=== PATIENT | female | born 1950 | race Caucasian/White ===

== ENCOUNTER → 2018-08-07 16:39 | Outpatient (CLI) | payer MEDICARE ==
[2018-08-07 19:46] LABS: ANION GAP 16.7 mmol/L (8-16); CALCIUM 8.9 mg/dL (8.5-10.1); CARBON DIOXIDE 23.6 mmol/L (21.0-32.0); CREATININE - SERUM 1.1 mg/dL (0.6-1.3); POTASSIUM - SERUM 4.3 mmol/L (3.5-5.1)
== END | disposition home or self-care (01) ==
LOC: D.LABREF 16:39
PROVIDERS: ATTEND Internal Medicine Interventional Cardiology
DX: I10 Essential (primary) hypertension (principal)

== ENCOUNTER → 2018-08-09 09:08 | Outpatient (CLI) | payer MEDICARE ==
--- NOTE | 2018-08-15 11:54 | ST ---
PATIENT:EVA HOOD MEDICAL RECORD: [id number] SEX: F LOCATION:[facility] ORDER #: ADMISSION DATE: 08/09/18 AGE OF PATIENT: 67 REFERRING PHYSICIAN: INTERPRETING PHYSICIAN: MALVIN VALERA MD DATE OF SERVICE: 08/09/2018 PROCEDURE: Nuclear Stress Test. INDICATION: Chest pain, abnormal ECG, family history of coronary artery disease. She was exercised on standard Lexiscan protocol with 31 mCi of sestamibi injected at peak stress, 11 mCi were used previously for rest images. FINDINGS: Gated SPECT reveals preserved ejection fraction at 62% with good wall motion and thickening and brightening throughout all segments. SPECT imaging Cardiolite was used as myocardial fusion agent. There is homogeneous uptake throughout all segments at rest and stress with no evidence of inducible ischemia or previous infarction. OVERALL IMPRESSION: 1. This is a normal nuclear stress test with no evidence of inducible ischemia or previous infarction. 2. Gated SPECT reveals a preserved ejection fraction at 62%. In this patient with ongoing symptomatology, the current scan does not suggest the presence of hemodynamically significant coronary artery disease. Evaluate noncardiac etiology of chest pain. TRANSINT:[id number] Voice Confirmation ID: [id number] DOCUMENT ID: [id number] MALVIN VALERA MD at 1154 CC: [id number] DICTATION DATE: 08/09/18 1250 COMPUTING TUTOR: 08/10/18 0056 DEP CLI 08/09/18 [facility] [address] [place] [address]
== END | disposition home or self-care (01) ==
LOC: D.HCCARDIO 09:08
PROVIDERS: ATTEND Internal Medicine Interventional Cardiology
DX: I20.9 Angina pectoris, unspecified (principal)

== ENCOUNTER → 2019-05-15 11:06 | Outpatient (CLI) | payer MEDICARE | END | disposition home or self-care (01) | LOC: D.LABREF 11:06 | PROVIDERS: ATTEND Orthopaedic Surgery | DX: M16.12 Unilateral primary osteoarthritis, left hip (principal) ==

== ENCOUNTER 2019-05-22 11:23 | Inpatient (IN) | payer MEDICARE ==
[~2019-05-22] VITALS: Ht 162.6 cm; Wt 83.9 kg
[2019-06-06] MEDS ORDERED: OMEPRAZOLE20 M1 PO (14:40)
[2019-06-06] MEDS ORDERED: ULTRAM50 MG PO (14:40)
[2019-06-06] MEDS ORDERED: MAGNESIUM OXID250 MG PO (14:42)
[2019-06-06] MEDS ORDERED: CLARITIN 10 MG10 MG PO (14:43)
[2019-06-06] MEDS ORDERED: MELATONIN10 M1 PO (14:43)
[2019-06-06] MEDS ORDERED: DIOVAN160 MG PO (14:50)
[2019-06-06] MEDS ORDERED: HYDROCHLOROTHIA25 MG PO (14:50)
[2019-06-06] MEDS ORDERED: ADVAIR HFA [SP]12 GM INH (14:51)
[2019-06-09 12:22] LABS: APPEARANCE CLEAR (CLEAR); BILIRUBIN NEGATIVE (NEGATIVE); COLOR YELLOW (YELLOW); GLUCOSE NEGATIVE (NEGATIVE); KETONE NEGATIVE (NEGATIVE); NITRITE NEGATIVE (NEGATIVE); PROTEIN NEGATIVE (NEGATIVE); SPECIFIC GRAVITY 1.015 (1.005-1.020); UROBILINOGEN NORMAL (NORMAL)
[2019-06-09 12:23] LABS: BACTERIA MANY /hpf (NEGATIVE); EPITHELIAL CELLS 0-5 /hpf (0-5); RED CELLS - URINE 0-5 /hpf (0-5); WHITE CELLS - URINE 0-5 /hpf (NEGATIVE)
[2019-06-17 08:24] VITALS: BP 137/97; BMI 34.4
[2019-06-17 08:47] LABS: BASOPHILS 0.6 % (0-2); EOSINOPHILS 3.9 % (0-7); HEMATOCRIT 40.2 % (36.0-48.0); IMMATURE GRANULOCYTES 0.3 % (0-5); LYMPHOCYTES 32.6 % (15-50); MCHC 34.8 g/dL (31.0-37.0); MCV 86.1 fL (80.0-100.0); MEAN PLATELET VOLUME 8.7 fL (7.4-10.4); MONOCYTES 8.3 % (2-11); NEUTROPHILS 54.3 % (40-80); PLATELET COUNT 301 10x3/uL (130-400); RBC 4.67 10x6/uL (4.00-5.40); RDW 12.3 % (11.5-14.5); WBC 7.3 10x3/uL (4.8-10.8)
[2019-06-17 08:51] LABS: ANION GAP 11.8 mmol/L (8-16); CALCIUM 9.1 mg/dL (8.5-10.1); CARBON DIOXIDE 27.3 mmol/L (21.0-32.0); CREATININE - SERUM 0.9 mg/dL (0.6-1.3); POTASSIUM - SERUM 4.1 mmol/L (3.5-5.1)
[2019-06-17 08:53] LABS: APTT 28.8 SECONDS (22.8-39.4); INR 1.05 (0.85-1.17); PROTIME 13.2 SECONDS (11.6-15.0)
[2019-06-17 14:15] VITALS: BP 126/73
[2019-06-17 14:28] VITALS: BP 117/77; BMI 31.8
--- NOTE | 2019-06-17 19:27 | NUR ---
RESTING IN BED WITH EYES CLOSED. RESP EVEN AND UNLABORED WITH NO S/S OF ANY ACUTE DISTRESS NOTED. WILL NOTE ANY CHANGE.
--- NOTE | 2019-06-17 20:15 | NUR ---
AWAKE AT THIS TIME. ALERT AND ORIENTED. PLEASANT MOOD AND AFFECT. ABLE TO VOICE ALL NEEDS. WILL NOTE ANY CHANGE.
--- NOTE | 2019-06-17 22:00 | NUR ---
AT 2119, COMPLAINS OF SEVERE NAUSEA AND PAIN, ZOFRAN AND DILAUDID GIVEN PER ORDERS. WOUND VAC IS STILL IN PLACE. AT THIS TIME MED IS DEEMED EFFECTIVE.
[2019-06-17 22:05] VITALS: BP 118/61
[2019-06-18] VITALS: BP 85/59
--- NOTE | 2019-06-18 01:12 | NUR ---
I have reviewed this patient and I concur with the Shift Assessment completed by the Licensed Practical Nurse today this shift.
--- NOTE | 2019-06-18 02:39 | NUR ---
RESTING QUIELTY AT THIS TIME. NO S/S OF ANY ACUTE DISTRESS.
[2019-06-18 04:00] VITALS: BP 103/61
[2019-06-18 05:55] LABS: BASOPHILS 0 % (0-2); EOSINOPHILS 0 % (0-7); HEMATOCRIT 36.3 % (36.0-48.0); HEMOGLOBIN 12.1 g/dL (12-16); IMMATURE GRANULOCYTES 0.3 % (0-5); LYMPHOCYTES 11.4 % (15-50); MCH 29.7 pg (26.0-34.0); MCHC 33.3 g/dL (31.0-37.0); MEAN PLATELET VOLUME 8.8 fL (7.4-10.4); MONOCYTES 8.8 % (2-11); NEUTROPHILS 79.5 % (40-80); PLATELET COUNT 304 10x3/uL (130-400); RBC 4.08 10x6/uL (4.00-5.40); RDW 12.5 % (11.5-14.5)
[2019-06-18 06:11] LABS: WBC 14.7 10x3/uL (4.8-10.8)
[2019-06-18 06:17] LABS: BILIRUBIN - TOTAL 0.39 mg/dL (0.2-1.3); CALCIUM 8.2 mg/dL (8.5-10.1); CARBON DIOXIDE 27.4 mmol/L (21.0-32.0); MAGNESIUM - SERUM 1.8 mg/dL (1.8-2.4); POTASSIUM - SERUM 4.4 mmol/L (3.5-5.1); PROTEIN - SERUM 6.4 g/dL (6.4-8.2)
[2019-06-18 06:18] LABS: CREATININE - SERUM 1.6 mg/dL (0.6-1.3)
[2019-06-18 07:32] VITALS: BP 91/51
--- NOTE | 2019-06-18 09:17 | OP ---
PATIENT NAME: EVA BORJA MEDICAL RECORD: [id number] :50 LOCATION:[id number] ADMISSION DATE:06/17/19 SURGEON: ROYCE BONE, DATE OF OPERATION: 06/17/2019 PROCEDURE PERFORMED: Left total hip arthroplasty. PREOPERATIVE DIAGNOSIS: Left hip osteoarthritis. POSTOPERATIVE DIAGNOSIS: Left hip osteoarthritis. INDICATIONS: Ms. Borja is a 68-year-old female who has had left hip pain and arthritis for quite some time. She was tired of dealing with the pain and was tired of it affecting her activities of daily living. She was aware of the risks of the procedure including fracture, bleeding, damage to nerves and vessels, need for further surgery, leg length discrepancy, continued pain, blood clots, failure of implants and even and she signed the consent. SURGEON: Dr. Royce Bone DESCRIPTION OF THE PROCEDURE: The patient was taken to the operative suite, laid in supine position, given general anesthetic and intubated. She was then positioned on the Liberty table. The left lower extremity was then prepped and draped in sterile fashion. Timeout was performed and everyone was in agreement as to the correct side, site, patient and procedure. We then began by making an incision over the tensor fascia casandra muscle. Careful dissection was made down to the fascia. The fascia was incised. Fascia was taken anterior to the muscle belly and posteriorly opened up the rectus interval. The rectus fascia was then opened and the rectus was taken medially and the tensor fascia casandra laterally. We then dissected out the ascending branch of lateral femoral circumflex, it was tied off and coagulated with Aquamantys and then cut and we then went down to the capsule, dissected out the capsule and opened up the capsule and then put two Hohmann retractors around the neck of the femur. The femoral neck was then cut. Once it was cut, the head was removed and the labrum was removed from around that and the Pulvinar as well. We then began reaming up and then up to a 48, 48 cup was impacted into place and fit well. The liner was put in and then exposed the femur and used the canal finder, cookie cutter, and then broached to a 5, 5 fit very well. This was reduced with a -3 neck. This had equal lengths to the right side. I then removed this, irrigated, and put the implants in and then reduced the hip, got x-rays, there are no fracture is seen in the femur and the stem fit very well. The left side was a couple of millimeters longer than the right. We did not feel to go with a -6 neck would solve the problem as it would make it shorter, we stayed with what we had. The site was then irrigated with a 10% povidone-iodine and 500 mL of normal saline solution and the wound was set for 3 minutes and then irrigated that out with over a liter of normal saline and then Deb, vancomycin, and tobramycin powder placed in the wound. We then closed the tensor fascia casandra fascia with #1 Vicryl, first a mnjtgy-zy-tgnon and then a running locking stitch. The skin was then closed with 2-0 Vicryl. This was closed by Marshal Pennington also with the help of Cuate Monroy, I was assisted by both of them. The skin was closed with 2-0 Vicryl in inverted interrupted fashion, 4-0 Monocryl in the skin and a Prevena plus wound VAC was placed on the skin. She was then dressed awakened and taken to the recovery in stable condition. OPERATIVE REPORT [id number] EVA BORJA Blood loss approximately 300 mL. COMPLICATIONS: None. TRANSINT:[id number] Voice Confirmation ID: [id number] DOCUMENT ID: [id number] ROYCE BONE DO at 0917 CC: [id number] DICTATION DATE: 06/17/19 1228 POLE FRAMER: 06/17/19 1823 ADM IN [address] [place] [address]
--- NOTE | 2019-06-18 10:03 | NUR ---
PATIENT RECIEVED ZOFRAN FOR NAUSEA. IV INTACT. NO COMPLAINTS. FAMILY AT BEDSIDE. CALL LIGHT WITHN REACH. STATED I WOULD START ZOFRAN DRIP WHEN IT COMES UP FROM PHARMACY. CALL LIGHT WITHIN REACH.
--- NOTE | 2019-06-18 10:30 | NUR ---
PATIENT STATED SHE VOMITTED AT THIS TIME AND THAT SHE FEELS A LOT BETTER. STATED ONLY VOMITTED ONCE. DOES NOT WANT ZOFRAN DRIP SET UP UNLESS SHE STARTS GETTING SICK AGAIN. NO COMPLAINTS OR SIGNS OF DISTRESS NOW. FAMILY AT BEDSIDE. CALL LIGHT WITHN REACH.
--- NOTE | 2019-06-18 11:46 | NUR ---
Rehab Note- Acute Inpatient Rehab prescreen order received. The patient has [employer] insurance and will require a PreAuth prior to an acute inpatient rehab stay. Will need an OT Eval for the PreAuth process. Will begin the PreAuth process. Will follow at this time. Thank you for this referral! Margarita Holland RN Clinical Liaison, [facility] Rehab
--- NOTE | 2019-06-18 12:00 | NUR ---
PATIENT SITTING UP IN BED WITH IV INTACT. NO COMPLAINTS OR SIGNS OF DISTRESS. STATES NO PAIN OR NAUSEA. NOTIFIED DR. BONE ABOUT ZOFRAN DRIP. STATED OK IF WE DONT START IT. CALL LIGTH WITHIN REACH.
[2019-06-18 14:25] VITALS: Ht 162.6 cm; Wt 83.9 kg
[2019-06-18 16:05] VITALS: BP 121/68
--- NOTE | 2019-06-18 18:45 | NUR ---
PATIENT IN BED WITH IV INTACT. NO COMPLAINTS OR SIGNS OF DISTRESS. CALL LIGHT WITHIN REACH. SCDS ON.
[2019-06-18 20:00] VITALS: BP 110/57
--- NOTE | 2019-06-18 20:00 | NUR ---
RESTING IN BED, DENIES PAIN OR NEEDS, SEE ASSESSMENT, CALL LIGHT IN REACH
[2019-06-19 04:00] VITALS: BP 124/60
[2019-06-19 05:29] LABS: BASOPHILS 0.1 % (0-2); EOSINOPHILS 2.7 % (0-7); HEMATOCRIT 31.8 % (36.0-48.0); HEMOGLOBIN 10.8 g/dL (12-16); IMMATURE GRANULOCYTES 0.3 % (0-5); LYMPHOCYTES 21.6 % (15-50); MCH 29.7 pg (26.0-34.0); MCV 87.4 fL (80.0-100.0); MEAN PLATELET VOLUME 8.9 fL (7.4-10.4); MONOCYTES 12.7 % (2-11); NEUTROPHILS 62.6 % (40-80); PLATELET COUNT 252 10x3/uL (130-400); RBC 3.64 10x6/uL (4.00-5.40); RDW 12.5 % (11.5-14.5)
[2019-06-19 05:54] LABS: WBC 10.6 10x3/uL (4.8-10.8)
[2019-06-19 06:00] LABS: ALBUMIN 2.7 g/dL (3.4-5.0); BILIRUBIN - TOTAL 0.62 mg/dL (0.2-1.3); CALCIUM 8.2 mg/dL (8.5-10.1); CARBON DIOXIDE 27.5 mmol/L (21.0-32.0); CREATININE - SERUM 1.5 mg/dL (0.6-1.3); MAGNESIUM - SERUM 1.8 mg/dL (1.8-2.4)
[2019-06-19 06:01] LABS: ANION GAP 11.2 mmol/L (8-16); PHOSPHOROUS 3.6 mg/dL (2.5-4.9); POTASSIUM - SERUM 3.7 mmol/L (3.5-5.1)
--- NOTE | 2019-06-19 07:40 | NUR ---
AWAKE AND ALERT. ORIENTED X3. REQUESTED AND GIVEN 5MG OXY IR PO FOR C/O LEFT HIP PAIN LEVEL 7. WILL MONITOR. LUNGS ARE CLEAR BILATERALLY, NO COUGH NOTED. USED IS AT THIS TIME. SKIN IS INTACT WITHOUT REDNESS EXCEPT INCISION TO LEFT HIP WHICH HAS A DRY INTACT PROVENA IN PLACE. NO DRAINAGE NOTED. SL TO RIGHT FOREARM IS PATENT WITHOUT REDNESS AT INSERTION SITE. DENIES FURTHER NEEDS.
[2019-06-19] MEDS ORDERED: ZOFRAN ODT4 MG/UDTAB PO (07:44)
[2019-06-19] MEDS ORDERED: OXYCODONE HCL5 M1 PO (07:44)
[2019-06-19] MEDS ORDERED: VISTARIL50 MG PO (07:44)
[2019-06-19] MEDS ORDERED: KEFLEX500 MG PO (07:45)
[2019-06-19] MEDS ORDERED: BAYER CHEWABLE81 MG PO (07:45)
--- NOTE | 2019-06-19 08:58 | MORECARE ---
CASE MANAGEMENT DISCHARGE SUMMARY PATIENT: EVA HOOD UNIT: [id number] ADM DATE: 06/17/19 AGE: 68 : 50 SEX: F ROOM/BED: D.2219 AUTHOR: KIERSTEN GARCIA PHYSICIAN: REFERRING PHYSICIAN: TRUONG BONE DO DATE OF SERVICE: 06/19/19 Discharge Plan Patient Name: EVA HOOD Facility: [facility]:[place] : 1950 Planned Disposition: Home or Self Care Anticipated Discharge Date: Discharge Date: Expected LOS: Initial Reviewer: [email or web address] Initial Review Date: 06/17/2019 Generated: 06/19/19 9:57 am Comments DCP- Discharge Planning Updated by [email or web address]: Florina Angelo on 06/19/19 7:[address] Patient Name: EVA HOOD Admission Status: Elective Accout number: [id number] Admission Date: 06-17-2019 : 1950 Admission Diagnosis: Attending: TRUONG BONE Current LOS: 2 Anticipated DC Date: Planned Disposition: Home or Self Care Primary Insurance: [employer] MEDICARE PPO or HMO Discharge Planning Comments: CM met with patient to complete initial dc planning assessment. CM educated patient on the CM role and verbal consent given by patient to complete assessment. Patient lives at home with her where she is independent with her care. At discharge patient plans to return home and feels this is a safe discharge. CM discussed availability of home health, rehab services, and medical equipment. She has a walker and a BSC from when she had her other joint replaced. She did not want/think she needed OP PT or HH. She stated that she did not need or do therapy with her last hip and didn't think she needed it for this. I have called Dr Bone to make sure that is ok. Her will be her flatbed driver home. Patient denied known discharge needs at this time. CM will continue to follow and will assist as needed with dc plans/needs. Mri Assistant: Florina Angelo DCPIA - Discharge Planning Initial Assessment Updated by [id number]: Florina Angelo on 06/19/19 8:52 am * Is the patient Alert and Oriented? Yes * How many steps to enter\exit or inside your home? * PCP KRISSY * Pharmacy [facility] [address] * Preadmission Environment Home with Family * ADLs Independent * Equipment Bedside Commode Walker * List name and contact numbers for known caregivers / representatives who currently or will assist patient after discharge: LB HOOD [phone] * Verbal permission to speak to the caregivers and representatives has been obtained from the patient. Yes * Community resources currently utilized None * Additional services required to return to the preadmission environment? No * Can the patient safely return to the preadmission environment? Yes * Has this patient been hospitalized within the prior 30 days at any hospital? No Patient Name: EVA HOOD Page [phone] at 0858 All edits/amendments must be made on the electronic document DICTATION DATE: 06/19/19856 ELECTRIC PLATER: LLOYD 06/19/19856 RPT#: [id number] DC DATE: STATUS: ADM IN [facility] [address] [place] [address] END OF REPORT
--- NOTE | 2019-06-19 09:00 | NUR ---
ATE ALL OF BREAKFAST SHE WANTED. DENIES NEEDS. TOOK AM MEDS WITHOUT DIFFICUTLY. REFUSED ZOFRAN SHE IS BEING DISCHARGED TODAY.
[2019-06-19 09:25] VITALS: BP 111/62
--- NOTE | 2019-06-19 12:30 | NUR ---
ATE ALL OF LUNCH SHE WANTED. DENIES NEEDS.
--- NOTE | 2019-06-19 13:15 | NUR ---
REQUESTED AND GIVNE ONE 5MG OXY IR PO FOR LEFT HIP PAIN LEVEL 5 ON THE TRIP HOME. DISCHARGED TO HOME WITH AMBULATORY. DISCHARGE INSTRUCTIONS GIVEN BOTH VERBALLY AND WRITTEN. ALL QUESTIONS ANSWERED. PATIENT AND VERBALZED UNDERSTANDING OF SAME. SL TO RIGHT FOREARM D/C WITH CATHETER INTACT. NEEDED PRESCRIPTIONS GIVEN TO PATIENT. ALL BELONGINGS WITH PATIENT.
[2019-06-19 13:18] VITALS: BP 111/64
[2019-06-19 13:57] LABS: APPEARANCE CLEAR (CLEAR); BILIRUBIN NEGATIVE (NEGATIVE); COLOR YELLOW (YELLOW); GLUCOSE NEGATIVE (NEGATIVE); KETONE NEGATIVE (NEGATIVE); NITRITE NEGATIVE (NEGATIVE); PROTEIN NEGATIVE (NEGATIVE); SPECIFIC GRAVITY 1.015 (1.005-1.020); UROBILINOGEN NORMAL (NORMAL)
--- NOTE | 2019-06-20 07:47 | MORECARE ---
CASE MANAGEMENT DISCHARGE SUMMARY PATIENT: EVA HOOD UNIT: [id number] ADM DATE: 06/17/19 AGE: 68 : 50 SEX: F ROOM/BED: D.2219 AUTHOR: RADHA,DOC PHYSICIAN: REFERRING PHYSICIAN: TRUONG BONE DO DATE OF SERVICE: 06/20/19 Discharge Plan Patient Name: EVA HOOD Facility: [facility]:[place] : 1950 Planned Disposition: Home or Self Care Anticipated Discharge Date: Discharge Date: 06/19/2019 Expected LOS: 0 Initial Reviewer: [email or web address] Initial Review Date: 06/17/2019 Generated: 06/20/19 8:46 am Comments DCP- Discharge Planning Updated by [email or web address]: Florina Angelo on 06/19/19 7:[address] Patient Name: EVA HOOD Admission Status: Elective Accout number: [id number] Admission Date: 06-17-2019 : 1950 Admission Diagnosis: Attending: TRUONG BONE Current LOS: 2 Anticipated DC Date: Planned Disposition: Home or Self Care Primary Insurance: [employer] MEDICARE PPO or HMO Discharge Planning Comments: CM met with patient to complete initial dc planning assessment. CM educated patient on the CM role and verbal consent given by patient to complete assessment. Patient lives at home with her where she is independent with her care. At discharge patient plans to return home and feels this is a safe discharge. CM discussed availability of home health, rehab services, and medical equipment. She has a walker and a BSC from when she had her other joint replaced. She did not want/think she needed OP PT or HH. She stated that she did not need or do therapy with her last hip and didn't think she needed it for this. I have called Dr Bone to make sure that is ok. 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 Patient denied known discharge needs at this time. CM will continue to follow and will assist as needed with dc plans/needs. [employer]: Florina nAgelo DCPIA - Discharge Planning Initial Assessment Updated by [email or web address]: Florina Angelo on 06/19/19 8:52 am * Is the patient Alert and Oriented? Yes * How many steps to enter\exit or inside your home? * PCP KRISSY * Pharmacy [facility] [address] * Preadmission Environment Home with Family * ADLs Independent * Equipment Bedside Commode Walker * List name and contact numbers for known caregivers / representatives who currently or will assist patient after discharge: LB HOOD [phone] * Verbal permission to speak to the caregivers and representatives has been obtained from the patient. Yes * Community resources currently utilized None * Additional services required to return to the preadmission environment? No * Can the patient safely return to the preadmission environment? Yes * Has this patient been hospitalized within the prior 30 days at any hospital? No Last DP export: 06/19/19 7:58 am Patient Name: EVA HOOD Page [phone] at 0747 All edits/amendments must be made on the electronic document DICTATION DATE: 06/20/19745 BELL VALET: LLOYD 06/20/19745 RPT#: [id number] DC DATE:06/19/19 STATUS: DIS IN [facility] [address] [place] [address] END OF REPORT
== END 2019-06-19 13:50 | disposition home or self-care (01) | DRG 470 ==
LOC: D.SDCHOLD 06-09 10:00 → D.MS 06-17 08:05 → D.SDCHOLD 06-17 08:30 → D.MS 06-17 13:40
PROVIDERS: Family Medicine; ADMIT Orthopaedic Surgery; ATTEND Orthopaedic Surgery
PROC: 0SRB0J9 Replacement of Left Hip Joint with Synthetic Substitute, Cemented, Open Approach (ICD-10-PCS; principal; 2019-06-17 09:15)
DX: M16.12 Unilateral primary osteoarthritis, left hip (principal); D62 Acute posthemorrhagic anemia; E87.1 Hypo-osmolality and hyponatremia; N17.9 Acute kidney failure, unspecified; I10 Essential (primary) hypertension; K21.9 Gastro-esophageal reflux disease without esophagitis; K44.9 Diaphragmatic hernia without obstruction or gangrene

== ENCOUNTER → 2019-06-09 09:07 | Outpatient (CLI) | payer MEDICARE ==
[~2019-06-09 09:07] MED LIST: ADVAIR HFA [SP]12 GM INH; CLARITIN 10 MG10 MG PO; DIOVAN160 MG PO; HYDROCHLOROTHIA25 MG PO; MAGNESIUM OXID250 MG PO; MELATONIN10 M1 PO; OMEPRAZOLE20 M1 PO; ULTRAM50 MG PO
== END | disposition home or self-care (01) ==
LOC: D.PAN 09:07
PROVIDERS: ATTEND Orthopaedic Surgery
DX: M16.12 Unilateral primary osteoarthritis, left hip (principal); Z01.810 Encounter for preprocedural cardiovascular examination; Z01.811 Encounter for preprocedural respiratory examination; Z01.812 Encounter for preprocedural laboratory examination